=== PATIENT | male | born 1990 | race American Indian/Alaskan Native ===

== ENCOUNTER 2017-06-18 01:22 | Emergency (ER) | payer MEDICARE ==
[2017-06-18 04:34] LABS: Basophils % (Auto) 0.5 % (0.0-1.8); Eosinophils % (Auto) 0.3 % (0.0-4.3); Lymphocytes # (Auto) 2.5 K/mm3 (1.2-5.4); Lymphocytes % (Auto) 27.5 % (13.4-35.0); Mean Corpuscular HGB Conc 29 % (32-34); Monocytes # (Auto) 1.3 K/mm3 (0.0-0.8); Monocytes % (Auto) 13.8 % (0.0-7.3); Platelet Count 430 K/mm3 (140-440); Red Blood Count 4.86 M/mm3 (3.65-5.03)
[2017-06-18 04:37] LABS: BUN/Creatinine Ratio 9; Blood Urea Nitrogen 8 mg/dL (9-20); Calcium 8.4 mg/dL (8.4-10.2); Hemolysis Index 0
[2017-06-18 04:43] LABS: Hematocrit 25.9 % (35.5-45.6); Hemoglobin 7.4 gm/dl (11.8-15.2); Mean Corpuscular Hemoglobin 15 pg (28-32); Mean Corpuscular Volume 53 fl (84-94); Red Cell Distribution Width 21.9 % (13.2-15.2)
[2017-06-18 08:12] VITALS: BP 151/95
[2017-06-18] MEDS ORDERED: PERCOCET 5/325 PO ONE (09:29)
--- NOTE | 2017-06-18 10:20 | XRay Report ---
XRAY LEFT SHOULDER THREE VIEWS: 06/18/17 01:22:00 CLINICAL: Fall and left shoulder pain. FINDINGS: No fracture or dislocation. Normal glenohumeral joint. Normal AC joint. The soft tissues are normal. IMPRESSION: Normal.
--- NOTE | 2017-06-18 10:21 | XRay Report ---
CHEST TWO VIEWS: 06/18/17 CLINICAL: Cough and fever. COMPARISON: None FINDINGS: Normal heart and pulmonary vasculature. The lungs are normally expanded and clear.Scoliosis of the thoracic spine. IMPRESSION: No acute cardiopulmonary process.No pneumonia.
--- NOTE | 2017-06-18 10:52 | Emergency Department Report ---
ED General Adult HPI - General Chief complaint: Syncope Stated complaint: SYNCOPE Time Seen by Provider: 06/18/17 09:20 Source: patient Mode of arrival: Ambulatory Limitations: No Limitations - History of Present Illness Initial comments: This occurs a 26-year-old male with history of hypertension and HIV who presents with syncope. He stated that before eating at a restaurant he became sweaty and weak. When he walked out, he passed out. He has left shoulder pain. Right knee abrasion. He has mild fever with nonproductive cough. He denies abdominal pain. Denies chest pain. Denies palpitations. Denies leg pain. Denies bloody stools. He is closely followed by Dr. Wan PCP Dr. Howard's infectious disease doctor. He is compliant with antiretrovirals medicine Genvoya. Severity scale (0 -10): 7 - Related Data Home Medications Medication Instructions Recorded Confirmed Last Taken Elviteg/Cob/Emtri/Tenofo Disop 1 tab PO QDAY 08/31/14 08/31/14 08/30/14 20:00 [Stribild Tablet] Lisinopril [Zestril] 20 mg PO QDAY 08/31/14 08/31/14 08/31/14 09:00 Previous Rx's Medication Instructions Recorded Last Taken Type Amoxicillin [Trimox CAP] 500 mg PO Q8H #21 capsule 08/31/14 Unknown Rx Cyclobenzaprine [Flexeril 10mg] 10 mg PO Q8H PRN #21 tablet 08/31/14 Unknown Rx HYDROcodone/APAP 5-325 [Brock 1 each PO Q6HR PRN #12 tablet 08/31/14 Unknown Rx 5/325] Ondansetron [Zofran Odt] 4 mg PO Q6H PRN #8 tab.rapdis 08/31/14 Unknown Rx Ferrous Sulfate [Iron] 325 mg PO TID #90 tablet 06/18/17 Unknown Rx Allergies Allergy/AdvReac Type Severity Reaction Status Date / Time NSAIDS (Non-Steroidal Allergy Bleeding Verified 02/17/14 18:58 Anti-Inflamma ED Review of Systems ROS: Stated complaint: SYNCOPE Other details as noted in HPI Comment: All other systems reviewed and negative Constitutional: chills, fever, malaise ENT: denies: throat pain Respiratory: cough Cardiovascular: denies: chest pain ED Past Medical Hx - Past Medical History Hx Hypertension: Yes Hx HIV: Yes - Surgical History Additional Surgical History: Bleeding peptic ulcer that required cautery - Social History Smoking Status: Current Every Day Smoker Substance Use Type: None - Medications Home Medications: Home Medications Medication Instructions Recorded Confirmed Last Taken Type Amoxicillin [Trimox CAP] 500 mg PO Q8H #21 capsule 08/31/14 Unknown Rx Cyclobenzaprine [Flexeril 10mg] 10 mg PO Q8H PRN #21 tablet 08/31/14 Unknown Rx Elviteg/Cob/Emtri/Tenofo Disop 1 tab PO QDAY 08/31/14 08/31/14 08/30/14 20:00 History [Stribild Tablet] HYDROcodone/APAP 5-325 [Brock 1 each PO Q6HR PRN #12 tablet 08/31/14 Unknown Rx 5/325] Lisinopril [Zestril] 20 mg PO QDAY 08/31/14 08/31/14 08/31/14 09:00 History Ondansetron [Zofran Odt] 4 mg PO Q6H PRN #8 tab.rapdis 08/31/14 Unknown Rx Ferrous Sulfate [Iron] 325 mg PO TID #90 tablet 06/18/17 Unknown Rx ED Physical Exam - General Limitations: No Limitations General appearance: alert, in no apparent distress - Head Head exam: Present: atraumatic, normocephalic - Eye Eye exam: Present: normal appearance - ENT ENT exam: Present: normal orophraynx, mucous membranes moist - Neck Neck exam: Present: normal inspection. Absent: meningismus - Respiratory Respiratory exam: Present: normal lung sounds bilaterally. Absent: respiratory distress, wheezes - Cardiovascular Cardiovascular Exam: Present: regular rate, normal rhythm, normal heart sounds. Absent: bradycardia, tachycardia, systolic murmur, diastolic murmur, rubs, gallop - GI/Abdominal GI/Abdominal exam: Present: soft, normal bowel sounds. Absent: distended, tenderness, guarding, rebound - Rectal Rectal exam: Present: normal rectal tone, heme (-) stool, hemorrhoids (small nonthrombosed hemorrhoid), other (emiliano-colored stool) - Extremities Exam Extremities exam: Present: normal inspection - Back Exam Back exam: Present: normal inspection - Neurological Exam Neurological exam: Present: alert, oriented X3 - Psychiatric Psychiatric exam: Present: normal affect, normal mood - Skin Skin exam: Present: warm, dry, intact, normal color. Absent: rash ED Course Vital Signs 06/18/17 06/18/17 04:03 08:11 Temperature 99.4 F Pulse Rate 108 H 93 H Respiratory 18 Rate Blood Pressure 150/100 Blood Pressure 151/95 [Left] O2 Sat by Pulse 100 100 Oximetry ED Medical Decision Making - Lab Data Result diagrams: 06/18/17 04:16 06/18/17 04:16 - EKG Data 06/18/17 10:50 NSR nl rate nl axis nl intervals no ST-T signs of ischemia no ST elevation rate 95 beats a minute right bundle branch block - Medical Decision Making Mr. Figueroa presents with low-grade fever and mild cough here in the ED. He does have a history of anemia. I suspect iron deficiency anemia. No indication of GI bleed. I reviewed electronic record. In 2014 hemoglobin was 15. This is a sherman contrast to hemoglobin 7.4 today. Patient stated over the last month he's been eating a lot of ice. His primary doctor did place him on iron therapy. He will follow with Dr. Wan this week. Critical care attestation.: If time is entered above; I have spent that time in minutes in the direct care of this critically ill patient, excluding procedure time. ED Disposition Clinical Impression: Syncope, Iron deficiency anemia, Viral syndrome Disposition: TO HOME OR SELFCARE Is pt being admited?: No Does the pt Need Aspirin: No Condition: Stable Instructions: Syncope (ED), Iron Deficiency Anemia (ED) Additional Instructions: Please see Dr. Wan this week. Hemoglobin has dropped from 15 to 7 over the past 3 years. Prescriptions: Ferrous Sulfate [Iron] 325 mg PO TID #90 tablet Referrals: CHUY WAN MD [Primary Care Provider] - 3-5 Days Time of Disposition: 11:01
== END 2017-06-18 11:00 | disposition home or self-care (01) ==
LOC: ED 01:22
DX: R55 Syncope and collapse (principal); S80.211A Abrasion, right knee, initial encounter; D50.9 Iron deficiency anemia, unspecified; B34.9 Viral infection, unspecified; M25.512 Pain in left shoulder; I10 Essential (primary) hypertension; F17.200 Nicotine dependence, unspecified, uncomplicated; Z88.6 Allergy status to analgesic agent; X58.XXXA Exposure to other specified factors, initial encounter; Y93.89 Activity, other specified; Y92.511 Restaurant or cafe as the place of occurrence of the external cause; Y99.8 Other external cause status
CPT/HCPCS: 36415; 71046; 80048; 85025; 93005; 93010